=== PATIENT | female | born 1975 | race Caucasian/White ===

== ENCOUNTER 2020-10-21 10:23 | Emergency (ER) | payer BC ==
[~2020-10-21] VITALS: Ht 154.9 cm; Wt 44.0 kg
[2020-10-21] MEDS ORDERED: SODIUM CHLORIDE FLUSH 10ML SYR IVF ONE (11:30)
[2020-10-21] MEDS ORDERED: SODIUM CHLORIDE 0.9% 1,000ML IVBOLUS ONE (11:30)
--- NOTE | 2020-10-21 12:10 | NUR ---
PT IV STARTED PER ORDERS. IVF RUNNING. UA COLLECTED SENT TO LAB. PT ON MONITORS, VSS. AWAITING ALL RESULTS.
[2020-10-21 12:14] LABS: BASOPHILS % (AUTO) 1 % (0-1); EOSINOPHILS % (AUTO) 1 % (1-7); LYMPHOCYTES % (AUTO) 15 % (22-44); MEAN CORPUSCULAR HEMOGLOBIN 33.7 pg (27.0-34.8); MEAN CORPUSCULAR HGB CONC 34.3 g/dL (32.4-35.8); MEAN PLATELET VOLUME 8.2 fL (7.4-10.4); MONOCYTES % (AUTO) 8 % (2-9); NEUTROPHILS % (AUTO) 76 % (42-75); PLATELET COUNT 285 x10^3/uL (130-400); RED BLOOD COUNT 4.28 x10^6/uL (3.82-5.3); RED CELL DISTRIBUTION WIDTH 13.4 % (9.6-15.2)
[2020-10-21 12:23] LABS: ALANINE AMINOTRANSFERASE 22 U/L (12-78); ALBUMIN 3.9 g/dL (3.4-5.0); CHLORIDE 107 mmol/L (98-107); CREATININE 0.91 mg/dL (0.55-1.02)
[2020-10-21 12:25] LABS: ALKALINE PHOSPHATASE 44 U/L (45-117); BILIRUBIN,TOTAL 0.3 mg/dL (0.2-1.0); TOTAL PROTEIN 7.4 g/dL (6.4-8.2)
[2020-10-21 12:43] LABS: MICROSCOPIC AUTO
[2020-10-21 12:52] LABS: ANION GAP 4 mmol/L (5-15)
--- NOTE | 2020-10-21 13:25 | NUR ---
PT UP TO RR, STEADY GAIT. PT RESTING IN BED, ON MONITORS, VSS. CONT TO MONITOR.
[2020-10-21 13:58] VITALS: BP 97/64
== END 2020-10-21 14:05 | disposition home or self-care (01) ==
LOC: ED 11:40
DX: R11.2 Nausea with vomiting, unspecified (principal); R42 Dizziness and giddiness; R09.81 Nasal congestion
CPT/HCPCS: 36415; 80053; 81001; 83605; 83690; 85025; 87077; 87086; 87186; 96360; 96361; 99283; J7030